=== PATIENT | female | born 1970 | race Caucasian/White ===

== ENCOUNTER → 2017-04-29 | Outpatient (CLI) | payer BC ==
[~2017-04-29] MED LIST: CYAN250T PO; GINGPOW2 PO; PROB1CAP32 PO; [UNRECOGNIZED DRUG - OTHER] PO
--- NOTE | 2017-04-30 14:18 | MAMMOGRAPHY REPORT ---
BILATERAL DIGITAL SCREENING MAMMOGRAM TOMOSYNTHESIS WITH CAD: 04/29/2017 CLINICAL HISTORY: Routine screening. Patient has no complaints. TECHNIQUE: Breast tomosynthesis in addition to standard 2D mammography was performed. Current study was also evaluated with a Computer Aided Detection (CAD) system. COMPARISON: Comparison is made to exams dated: 04/25/2016 mammogram, 04/16/2016 ultrasound, 04/08/2016 m ammogram, 11/27/2015 mammogram, 11/27/2015 ultrasound, and 03/31/2015 mammogram - [facility]. BREAST COMPOSITION: The tissue of both breasts is almost entirely fatty. FINDINGS: Decreased size of a previously observed 15 x 8 mm ovoid lobulated mass in the left upper ou ter posterior breast, confirming a benign fluctuating cyst, and concordant with the cyst identified o n ultrasound in the 1:00 axis. No new suspicious mass, architectural distortion or cluster of microc alcifications is seen. Although the patient failed to follow-up for previously recommended left diagnostic mammogram and ult rasound after he canceled ultrasound guided core biopsy, given the fatty replaced appearance of the b reasts, mammogram is sufficient to exclude the possibility of any new mass in the area of prior cance led biopsy (which was denoted with a BB marker placed overlying the area of sonographic concern). IMPRESSION: ACR BI-RADS CATEGORY 1: NEGATIVE Decreased size of a benign fluctuating cyst in the 1:00 posterior left breast. There is no mammograp hic evidence of malignancy bilaterally. A 1 year screening mammogram is recommended. The patient gunner l receive written notification of the results. Approximately 10% of breast cancers are not detected with mammography. A negative mammographic report should not delay biopsy if a clinically suggestive mass is present. Delfina Martinez M.D. ay/:04/29/2017 16:53:58 Mmd Unit Teacher: Nely Bennett, [facility] letter sent: Normal 1/2 BI-RADS Code: ACR BI-RADS Category 1: Negative
== END | disposition home or self-care (01) ==
LOC: C.MAMM 14:54
PROVIDERS: ATTEND Physician Assistant
DX: Z12.31 Encounter for screening mammogram for malignant neoplasm of breast (principal); N60.02 Solitary cyst of left breast

== ENCOUNTER → 2017-06-23 | Outpatient (CLI) | payer BC ==
--- NOTE | 2017-06-23 13:20 | DIAGNOSTIC IMAGING REPORT ---
BILATERAL LOWER EXTREMITY VENOUS DOPPLER HISTORY: BILATERAL LEG Paresthesia, bubble SENSATION CALVES COMPARISON STUDY: None. FINDINGS: There is normal compressibility, flow, and augmentation within the bilateral lower extremity deep venous systems. IMPRESSION: No DVT within the right or left lower extremity. Electronically signed by: Davion Silveira M.D. 06/23/2017 1:19 PM Dictated Date/Time: 06/23/2017 1:19 PM
== END | disposition home or self-care (01) ==
LOC: C.ULTRBC 12:49
PROVIDERS: ATTEND Family Medicine
DX: R20.2 Paresthesia of skin (principal)

== ENCOUNTER → 2017-09-05 | Outpatient (CLI) | payer BC | END | disposition home or self-care (01) | LOC: C.ULTR 06:59 | DX: R10.31 Right lower quadrant pain (principal); R10.32 Left lower quadrant pain; R14.0 Abdominal distension (gaseous) ==